=== PATIENT | male | born 1990 | race Caucasian/White ===

== ENCOUNTER 2016-08-11 06:02 | Emergency (ER) | payer OTHER, MEDICAID ==
[~2016-08-11] VITALS: Ht 170.2 cm; Wt 120.2 kg
[2016-08-11 06:02] VITALS: BP 156/97; PULSE 100; RESP 20; TEMP 98.1; O2SAT 100
[2016-08-11 06:41] VITALS: BP 146/87; PULSE 89; RESP 20; TEMP 98.1; O2SAT 100
== END 2016-08-11 06:38 | disposition home or self-care (01) ==
LOC: SED 06:02
DX: S43.004A Unspecified dislocation of right shoulder joint, initial encounter (principal); I10 Essential (primary) hypertension; F32.9 Major depressive disorder, single episode, unspecified; X58.XXXA Exposure to other specified factors, initial encounter; Y93.89 Activity, other specified; Y99.8 Other external cause status; Y92.89 Other specified places as the place of occurrence of the external cause
CPT/HCPCS: 99284